=== PATIENT | female | born 1985 | race Asian ===

== ENCOUNTER 2017-10-04 19:34 | Emergency (ER) | payer OTHER ==
[~2017-10-04] VITALS: Ht 165.1 cm; Wt 63.5 kg
[2017-10-04] MEDS ORDERED: NKM (19:51)
[2017-10-04 19:58] VITALS: BP 140/89
--- NOTE | 2017-10-04 20:53 | Emergency Room Report ---
History of Present Illness General Chief Complaint: Earache Source: Patient Present Illness HPI Patient is a 32-year-old female who presented after increased left-sided facial pain. Patient had gradual onset of symptoms. Patient reports having similar symptoms in the past. Patient was noted to have a prior history of a preauricular cyst. Patient had previous incision and drainage. She denies any fever. She recently been taking Augmentin without any improvement. She noted some purulent drainage to the cyst punctum. Allergies: Coded Allergies: No Known Allergies (Unverified , 10/04/17) Patient History Past Medical History: see triage record Last Menstrual Period: last month Reviewed Nursing Documentation: PMH: Agreed; PSxH: Agreed Nursing Documentation-PMH Hx Cardiac Problems: Yes - HIGH CHOLESTEROL Hx Gastrointestinal Problems: Yes - HEP B Review of Systems All Other Systems: negative except mentioned in HPI Physical Exam Vital Signs Date Time Temp Pulse Resp B/P (MAP) Pulse Ox O2 Delivery O2 Flow Rate FiO2 10/04/17 19:45 98.3 73 16 140/89 97 Room Air 98.2 Sp02 EP Interpretation: reviewed, normal General Appearance: normal inspection, well appearing, no apparent distress, alert, GCS 15, non-toxic Head: normocephalic, atraumatic ENT: hearing grossly normal, normal voice, other - preauricular swelling, fluid , slight discharge, bruising Neck: normal inspection, full range of motion, supple, no bony tend Respiratory: normal inspection, lungs clear, normal breath sounds, no respiratory distress, no retraction, no wheezing Cardiovascular #1: regular rate, rhythm, no edema Gastrointestinal: normal inspection, normal bowel sounds, non tender, soft, no guarding, no hernia Genitourinary: no CVA tenderness Musculoskeletal: normal inspection, back normal, normal range of motion Neurologic: normal inspection, alert, oriented x3, responsive, collateral clerk III-XII nml as tested, motor strength/tone normal, speech normal Psychiatric: normal inspection, judgement/insight normal, mood/affect normal Skin: normal inspection, normal color, no rash Medical Decision Making Diagnostic Impression: Primary Impression: Facial abscess ER Course Patient presented for ear pain. Differential diagnosis included was not limited to abscess, otitis media, malignant otitis externa, foreign body, cellulitis, mastoiditis, carotid dissection, myocardial infarction among others. The patient appears evidence of infection to the left side of her face. Dr. Darnell was contacted for surgical consult. The patient underwent incision and drainage.The patient follow-up with Dr. Darnell on Monday. Last Vital Signs Date Time Temp Pulse Resp B/P (MAP) Pulse Ox O2 Delivery O2 Flow Rate FiO2 10/04/17 19:58 98.2 73 16 140/89 97 Room Air 98.2 Status: improved Disposition: HOME, SELF-CARE Condition: Stable Referrals: [facility] (PCP) Reece Handy MD Oct 04, 2017 20:53
--- NOTE | 2017-10-04 21:12 | Consultation ---
History of Present Illness General Date patient seen: Oct 04, 2017 Chief Complaint: Earache Reason for Consultation: left ear abscess Present Illness HPI 32 year old otherwise healthy female with known history of preauricular sinus presented to ED with complaints of worsening pain/tenderness. States she saw her PCP 3 days ago and was given oral Abx for presumed infection. Since has been worsening and has purulent drainage. Noted a cystic like enlargement. Came to ED for evaluation. Has history of infected preauricular sinus in the past and has had one prior I&D before. Has seen ENT prior and was told not to operate unless recurrent and may resolve without surgery. Last infection 4 years ago and prior to that at age 18. Objective fevers, worsening pain, worsening edema/erythema. Surgery called to evaluate for possible drainage. Bedside ultrasound demonstrated fluid collection likely abscess. patient seen, chart reviewed, patient examined. Allergies: Coded Allergies: No Known Allergies (Unverified , 10/04/17) Medication History Scheduled No Known Medications* (NKM - No Known Medications*), 0 ., (Reported) Patient History History Provided By: Patient, Medical Record Healthcare decision maker Resuscitation status Advanced Directive on File Past Medical/Surgical History Past Medical/Surgical History: (1) Preauricular sinus and cyst (2) Facial abscess Review of Systems Constitutional: Reports: fever; Denies: no symptoms, see HPI, chills, sweats, malaise, weakness, other Eye: Denies: no symptoms, see HPI, eye pain, blurred vision, tearing, double vision, nose pain, nose congestion, acuity changes, discharge, other ENT: Reports: ear pain, ear discharge Respiratory: Denies: no symptoms, see HPI, cough, orthopnea, shortness of breath, stridor, wheezing, [place], sputum, other Cardiovascular: Denies: no symptoms, see HPI, chest pain, edema, palpitations, syncope, PND, other Gastrointestinal: Denies: no symptoms, see HPI, abdominal pain, constipation, diarrhea, nausea, vomiting, melena, hematemesis, other Genitourinary: Denies: no symptoms, see HPI, discharge, dysuria, frequency, hematuria, pain, retention, incontinence, urgency, vag bleed/dc, other Musculoskeletal: Denies: no symptoms, see HPI, back pain, gout, joint pain, joint swelling, muscle pain, muscle stiffness, other Skin: Denies: no symptoms, see HPI, rash, change in color, change in hair/nails , dryness, lesions, other Psychiatric: Denies: no symptoms, see HPI, prior hx, anxiety, depressed feelings, emotional problems, SI, HI, hallucinations, other Neurological: Denies: no symptoms, see HPI, headache, numbness, paresthesia, seizure, tingling, tremors, focal weakness, syncope, dizziness, other Endocrine: Denies: no symptoms, see HPI, excessive sweating, flushing, intolerance to temperature, increased thirst, increased urine, unexplained weight loss, other Hematologic/Lymphatic: Denies: no symptoms, see HPI, anemia, blood clots, easy bleeding, easy bruising, swollen glands, diathesis, other Physical Exam General Appearance: WD/WN, no apparent distress, alert Lines, tubes and drains: peripheral HEENT: normocephalic, EOMI, other - left preauricular sinus with surrounding erythema, edema, fluid collection/fluctuance, and drainage of pus from sinus Neck: supple Respiratory/Chest: lungs clear, normal breath sounds, no respiratory distress, no accessory muscle use Cardiovascular/Chest: normal peripheral pulses, normal rate Abdomen: non tender, soft, no organomegaly, no mass Extremities: normal range of motion, non-tender, normal inspection Skin Exam: normal pigmentation, warm/dry Neurologic: alert, oriented x 3 Last 24 Hour Vital Signs Date Time Temp Pulse Resp B/P (MAP) Pulse Ox O2 Delivery O2 Flow Rate FiO2 10/04/17 19:58 98.2 73 16 140/89 97 Room Air 98.2 10/04/17 19:45 98.3 73 16 140/89 97 Room Air 98.2 Height (Feet): 5 Height (Inches): 5.00 Weight (Pounds): 140 Assessment/Plan Problem List: (1) Facial abscess Assessment & Plan: 32F known left preauricular abscess / infected sinus. History of prior I&D for similar events. on evaluation tender, fluctuance, ultrasound with likely abscess. purulent drainage. sinus tract flushed and tenderness without significant improvement and seems like connected to abscess cavity. I&D recommended and performed at bedside. see procedure note. -will leave open with packing and dressings -follow up with me next week for wound check -cont abx -keep clean thank you for this consult. instructions given to patient at bedside. ICD Codes: L02.01 - Cutaneous abscess of face SNOMED: 685265506 (2) Preauricular sinus and cyst ICD Codes: Q18.1 - Preauricular sinus and cyst SNOMED: 02252116, [id number] Status: stable Bakari Darnell Oct 04, 2017 21:12
[2017-10-04] MEDS ORDERED: NORCO 5-325 TA1 EACH ORAL (21:24)
[2017-10-04 21:32] VITALS: BP 142/85
[2017-10-04 21:33] VITALS: BP 142/85
--- NOTE | 2017-10-04 22:30 | Operative Note - Dictated ---
DATE OF OPERATION: 10/04/2017 PREOPERATIVE DIAGNOSIS: Left preauricular sinus with infection and abscess. POSTOPERATIVE DIAGNOSIS: Left preauricular sinus with infection and abscess. OPERATION PERFORMED: Incision and drainage of left preauricular abscess. ATTENDING SURGEON: Bakari Darnell M.D. GLOBAL CONSUMER SECTOR VICE PRESIDENT: None. ANESTHESIA: Local, 1% lidocaine. ESTIMATED BLOOD LOSS: Minimal. IV FLUIDS: None. COMPLICATIONS: None. DRAINS: None. WOUND CLASSIFICATION: Class 3. INDICATIONS FOR PROCEDURE: This is a 32-year-old female with known history of preauricular sinus tract from prior infections requiring I and D in the past, who presented to the emergency department with worsening left preauricular pain. The patient states that began a few days ago and was seen by medical personnel and given oral antibiotics three days ago. Since has been worsening and currently has subjective fevers, significant left preauricular tenderness, and can feel an area of fluctuance causing her significant discomfort. She has noted some purulent drainage from the sinus tract as well. She came to the emergency room for evaluation at which time, a bedside ultrasound was performed and an abscess was identified. The sinus tract was irrigated, but without significant improvement and demonstrating potential connection to the abscess cavity. Given these findings, incision and drainage was indicated and recommended. Consent was obtained from the patient. Risks, benefits, and alternatives were discussed in detail. OPERATIVE NOTE: The patient was made comfortable at the bedside in the emergency department. The left preauricular area was prepped and draped in the standard surgical fashion. Local anesthetic of 1% lidocaine was infiltrated in the proposed skin incision. Given the patient had a prior incision and drainage, decision was made to use prior drainage incision for anesthetic effect. The proposed skin incision site was adequately anesthetized. A fresh #11 scalpel was used to make incision through the patient's prior incision. This was carried down to the abscess cavity with blunt dissection and scissors. The abscess cavity was identified and purulent fluid was evacuated. Cultures were taken. The abscess cavity was irrigated with copious amounts of sterile saline. The sinus tract was cannulated and flushed and noted to be connected to the abscess cavity with fluid being flushed through the sinus tract being evacuated through the incision and drainage site. Once the wound was irrigated and cleansed and at this time, decision was made to left wound open with packing and dressing. The patient to perform packing dressing three times a day and keep wound site clean, and we will follow up with myself or PCP or ENT as an outpatient. Full instructions given to the patient at the bedside. The patient tolerated the procedure well. Packing and dressings were placed. Bakari Darnell M.D. DR: CRISTHIAN JOB#: [id number] CC: HARISH
== END 2017-10-04 21:34 | disposition home or self-care (01) ==
LOC: EMR 20:06
DX: L02.01 Cutaneous abscess of face (principal)
CPT/HCPCS: 10061; 87070; 87075; 87181; 87205; 99282; 99284